=== PATIENT | male | born 1940 | race Caucasian/White ===

== ENCOUNTER 2020-12-24 10:42 | Outpatient (CLI) | payer MEDICARE | END 2020-12-24 10:43 | disposition home or self-care (01) | LOC: CSHWCC 10:42 | PROVIDERS: ATTEND Nurse Practitioner Family | DX: I87.332 Chronic venous hypertension (idiopathic) with ulcer and inflammation of left lower extremity (principal); I87.311 Chronic venous hypertension (idiopathic) with ulcer of right lower extremity; I87.2 Venous insufficiency (chronic) (peripheral); E11.622 Type 2 diabetes mellitus with other skin ulcer; L97.812 Non-pressure chronic ulcer of other part of right lower leg with fat layer exposed; L97.821 Non-pressure chronic ulcer of other part of left lower leg limited to breakdown of skin; R60.0 Localized edema; E11.59 Type 2 diabetes mellitus with other circulatory complications; M1A.9XX0 Chronic gout, unspecified, without tophus (tophi) | CPT/HCPCS: 97139; G0463; 99213 ==

== ENCOUNTER 2020-12-28 10:58 | Outpatient (CLI) | payer MEDICARE | END 2020-12-28 10:59 | disposition home or self-care (01) | LOC: CSHWCC 10:58 | PROVIDERS: ATTEND Nurse Practitioner Family | DX: I87.332 Chronic venous hypertension (idiopathic) with ulcer and inflammation of left lower extremity (principal); I87.311 Chronic venous hypertension (idiopathic) with ulcer of right lower extremity; L97.812 Non-pressure chronic ulcer of other part of right lower leg with fat layer exposed; L97.821 Non-pressure chronic ulcer of other part of left lower leg limited to breakdown of skin; R60.0 Localized edema; E11.59 Type 2 diabetes mellitus with other circulatory complications; I87.2 Venous insufficiency (chronic) (peripheral); M1A.9XX0 Chronic gout, unspecified, without tophus (tophi) | CPT/HCPCS: 97139; G0463; 99213 ==

== ENCOUNTER 2021-01-05 12:42 | Outpatient (CLI) | payer MEDICARE | END 2021-01-05 12:43 | disposition home or self-care (01) | LOC: CSHWCC 12:42 | PROVIDERS: ATTEND Nurse Practitioner Family | DX: I87.333 Chronic venous hypertension (idiopathic) with ulcer and inflammation of bilateral lower extremity (principal); L97.812 Non-pressure chronic ulcer of other part of right lower leg with fat layer exposed; L97.821 Non-pressure chronic ulcer of other part of left lower leg limited to breakdown of skin; R60.0 Localized edema; E11.59 Type 2 diabetes mellitus with other circulatory complications; I87.2 Venous insufficiency (chronic) (peripheral); M1A.9XX0 Chronic gout, unspecified, without tophus (tophi) | CPT/HCPCS: 99213; G0463 ==

== ENCOUNTER 2021-01-07 10:16 | Outpatient (CLI) | payer MEDICARE | END 2021-01-07 10:17 | disposition home or self-care (01) | LOC: CSHWCC 10:16 | PROVIDERS: ATTEND Nurse Practitioner Family | DX: I87.332 Chronic venous hypertension (idiopathic) with ulcer and inflammation of left lower extremity (principal); I87.311 Chronic venous hypertension (idiopathic) with ulcer of right lower extremity; L97.812 Non-pressure chronic ulcer of other part of right lower leg with fat layer exposed; L97.821 Non-pressure chronic ulcer of other part of left lower leg limited to breakdown of skin; R60.0 Localized edema; E11.59 Type 2 diabetes mellitus with other circulatory complications; I87.2 Venous insufficiency (chronic) (peripheral); M1A.9XX0 Chronic gout, unspecified, without tophus (tophi) | CPT/HCPCS: 99213; G0463 ==

== ENCOUNTER 2021-02-10 08:54 | Outpatient (CLI) | payer MEDICARE | END 2021-02-10 08:55 | disposition home or self-care (01) | LOC: CSHWCC 08:54 | PROVIDERS: ATTEND Nurse Practitioner Family | DX: I87.311 Chronic venous hypertension (idiopathic) with ulcer of right lower extremity (principal); L97.812 Non-pressure chronic ulcer of other part of right lower leg with fat layer exposed; I87.332 Chronic venous hypertension (idiopathic) with ulcer and inflammation of left lower extremity; L97.821 Non-pressure chronic ulcer of other part of left lower leg limited to breakdown of skin; R60.0 Localized edema; E11.59 Type 2 diabetes mellitus with other circulatory complications; I87.2 Venous insufficiency (chronic) (peripheral); E11.622 Type 2 diabetes mellitus with other skin ulcer | CPT/HCPCS: 87070; 87077; 87186; 87205; 97139; G0463; 99213 ==

== ENCOUNTER 2021-02-16 13:31 | Outpatient (CLI) | payer MEDICARE | END 2021-02-16 13:32 | disposition home or self-care (01) | LOC: CSHWCC 13:31 | PROVIDERS: ATTEND Nurse Practitioner Family | DX: I87.332 Chronic venous hypertension (idiopathic) with ulcer and inflammation of left lower extremity (principal); I87.311 Chronic venous hypertension (idiopathic) with ulcer of right lower extremity; I87.2 Venous insufficiency (chronic) (peripheral); E11.622 Type 2 diabetes mellitus with other skin ulcer; L97.812 Non-pressure chronic ulcer of other part of right lower leg with fat layer exposed; L97.821 Non-pressure chronic ulcer of other part of left lower leg limited to breakdown of skin; R60.0 Localized edema; E11.59 Type 2 diabetes mellitus with other circulatory complications; M1A.9XX0 Chronic gout, unspecified, without tophus (tophi) | CPT/HCPCS: 99213; G0463 ==

== ENCOUNTER 2021-04-28 08:46 | Outpatient (CLI) | payer MEDICARE | END 2021-04-28 08:47 | disposition home or self-care (01) | LOC: CSHWCC 08:46 | PROVIDERS: ATTEND Nurse Practitioner Family | DX: I87.332 Chronic venous hypertension (idiopathic) with ulcer and inflammation of left lower extremity (principal); I87.311 Chronic venous hypertension (idiopathic) with ulcer of right lower extremity; I87.2 Venous insufficiency (chronic) (peripheral); E11.622 Type 2 diabetes mellitus with other skin ulcer; L97.812 Non-pressure chronic ulcer of other part of right lower leg with fat layer exposed; L97.821 Non-pressure chronic ulcer of other part of left lower leg limited to breakdown of skin; E11.59 Type 2 diabetes mellitus with other circulatory complications; R60.0 Localized edema; M1A.9XX0 Chronic gout, unspecified, without tophus (tophi) | CPT/HCPCS: 97139; G0463; 99213 ==

== ENCOUNTER 2021-10-10 08:51 | Outpatient (CLI) | payer MEDICARE | END 2021-10-10 08:52 | disposition home or self-care (01) | LOC: CSHWCC 08:51 | PROVIDERS: ATTEND Nurse Practitioner Family | DX: I87.311 Chronic venous hypertension (idiopathic) with ulcer of right lower extremity (principal); E11.59 Type 2 diabetes mellitus with other circulatory complications; I87.2 Venous insufficiency (chronic) (peripheral); L97.811 Non-pressure chronic ulcer of other part of right lower leg limited to breakdown of skin; I87.332 Chronic venous hypertension (idiopathic) with ulcer and inflammation of left lower extremity; L97.821 Non-pressure chronic ulcer of other part of left lower leg limited to breakdown of skin; R60.0 Localized edema ==

== ENCOUNTER 2021-10-14 11:09 | Outpatient (CLI) | payer MEDICARE | END 2021-10-14 11:10 | disposition home or self-care (01) | LOC: CSHWCC 11:09 | PROVIDERS: ATTEND Nurse Practitioner Family | DX: I87.311 Chronic venous hypertension (idiopathic) with ulcer of right lower extremity (principal); E11.59 Type 2 diabetes mellitus with other circulatory complications; I87.2 Venous insufficiency (chronic) (peripheral); L97.811 Non-pressure chronic ulcer of other part of right lower leg limited to breakdown of skin; I87.332 Chronic venous hypertension (idiopathic) with ulcer and inflammation of left lower extremity; L97.821 Non-pressure chronic ulcer of other part of left lower leg limited to breakdown of skin; R60.0 Localized edema | CPT/HCPCS: 29581; 97139; G0463; 99213 ==

== ENCOUNTER 2022-05-30 11:25 | Inpatient (IN) | payer MEDICARE, OTHER ==
[2022-05-30 12:07] LABS: #Eosinphils 0.2 10x3/uL (0.0-0.5); #Monocytes 0.5 10x3/uL (0.0-1.1); #Neutrophils 4.1 10x3/uL (1.5-8.4); %Basophils 0.2 % (0.0-2.0); %Eosinophils 3.3 % (0.0-6.0); %Lymphocytes 11.6 % (18.0-47.0); %Monocytes 9.1 % (0.0-10.0); %Neutrophils 75.1 % (40.0-75.0); Hemoglobin 9.6 g/dL (13.5-17.5); Mean Corpuscular HGB CONC 32.4 g/dL (32.0-36.0); Mean Corpuscular Hemoglobin 27.5 pg (27.0-33.0); Mean Corpuscular Volume 84.8 fl (81.2-95.1); Mean Platelet Volume 10.3 fl (7.4-10.4); Platelet Count 166 10x3/uL (150-450); RBC Distribution Width 15.9 % (11.5-14.5); Red Blood Cell (RBC) Count 3.49 10x6/uL (4.32-5.72); White Blood Cell (WBC) Count 5.5 10x3/uL (3.5-10.5)
[2022-05-30 12:24] LABS: ALT (SGPT) 12 U/L (8-55); AST (SGOT) 11 U/L (5-34); Albumin 3.3 g/dL (3.4-4.8); Alkaline Phosphatase 114 U/L (40-110); Anion Gap 15 mmol/L (10-20); BUN (Urea Nitrogen) 120 mg/dL (8.4-25.7); Bilirubin, Total 0.8 mg/dL (0.2-1.2); Calc. Creatinine Clearance 0 mL/min (70-130); Calcium 8.5 mg/dL (7.8-10.44); Carbon Dioxide 19 mmol/L (23-31); Chloride 100 mmol/L (98-107); Estimated GFR 12; Globulin 3.5 g/dL (2.4-3.5); Glucose 106 mg/dL (83-110); Lipase 59 U/L (8-78); Magnesium 1.6 mg/dL (1.6-2.6); Potassium 4.9 mmol/L (3.5-5.1); Protein, Total 6.8 g/dL (5.8-8.1); Sodium 129 mmol/L (136-145)
[2022-05-30 12:44] LABS: CKMB 1.9 ng/mL (0-6.6)
[2022-05-30 15:39] LABS: Bilirubin Neg (Negative); Blood, Urine Negative (Negative); Clarity Clear (Clear); Glucose, Urine (Dipstick) Normal (Negative); Ketone, Urine Negative (Negative); Leukocyte Negative (Negative); Nitrite Negative (Negative); Protein, Urine (Dipstick) Negative (Neg-Trace); Urobilinogen Normal mg/dL (Less than 2)
[2022-05-30] MEDS ORDERED: HumaLOG 300 UNITS/3 ML VIAL SC PRN ×2 (16:27)
[2022-05-30] MEDS ORDERED: Dextrose 5% in Water 1,000 ML IV PRN (16:27)
[2022-05-30] MEDS ORDERED: Dextrose 50% Abboject 50 ML SYRINGE SLOW IVP PRN (16:27)
[2022-05-30 16:49] VITALS: BMI 27.3
[2022-05-30 18:30] LABS: Anion Gap 15 mmol/L (10-20); BUN (Urea Nitrogen) 113 mg/dL (8.4-25.7); Calc. Creatinine Clearance 18 mL/min (70-130); Calcium 8.7 mg/dL (7.8-10.44); Carbon Dioxide 19 mmol/L (23-31); Chloride 100 mmol/L (98-107); Estimated GFR 14; Glucose 100 mg/dL (83-110); Potassium 4.5 mmol/L (3.5-5.1); Sodium 129 mmol/L (136-145)
[2022-05-30 18:37] LABS: Troponin I 0.056 ng/mL (< 0.028)
[2022-05-30] MEDS: Albumin 25% 25 GM/100 ML BOT IVPB SCH (19:46)
[2022-05-30] MEDS: Sodium Chloride 0.9% 1,000 ML IV SCH (19:49)
[2022-05-30] MEDS: Heparin 5,000 UNITS/ML VIAL SC SCH (22:00)
[2022-05-31 01:57] LABS: Creatinine, Urine 45.11 mg/dL (63-166)
[2022-05-31] MEDS ORDERED: Albumin 25% 25 GM/100 ML BOT IVPB SCH (04:00)
[2022-05-31 04:27] LABS: #Eosinphils 0.2 10x3/uL (0.0-0.5); #Monocytes 0.5 10x3/uL (0.0-1.1); #Neutrophils 4.1 10x3/uL (1.5-8.4); %Basophils 0.4 % (0.0-2.0); %Eosinophils 4.3 % (0.0-6.0); %Lymphocytes 12.9 % (18.0-47.0); %Monocytes 8.9 % (0.0-10.0); %Neutrophils 72.6 % (40.0-75.0); Hemoglobin 10.5 g/dL (13.5-17.5); Mean Corpuscular HGB CONC 31.9 g/dL (32.0-36.0); Mean Corpuscular Hemoglobin 27.3 pg (27.0-33.0); Mean Corpuscular Volume 85.7 fl (81.2-95.1); Mean Platelet Volume 11.7 fl (7.4-10.4); Platelet Count 199 10x3/uL (150-450); RBC Distribution Width 16.1 % (11.5-14.5); Red Blood Cell (RBC) Count 3.84 10x6/uL (4.32-5.72); White Blood Cell (WBC) Count 5.6 10x3/uL (3.5-10.5)
[2022-05-31 04:44] LABS: Anion Gap 14 mmol/L (10-20); BUN (Urea Nitrogen) 105 mg/dL (8.4-25.7); Calc. Creatinine Clearance 22 mL/min (70-130); Calcium 9.1 mg/dL (7.8-10.44); Carbon Dioxide 21 mmol/L (23-31); Chloride 102 mmol/L (98-107); Estimated GFR 17; Glucose 86 mg/dL (83-110); Potassium 4.6 mmol/L (3.5-5.1); Sodium 132 mmol/L (136-145)
[2022-05-31] MEDS: Sodium Chloride 0.9% 1,000 ML IV SCH ×2 (06:57→17:54)
[2022-05-31] MEDS: Albumin 25% 25 GM/100 ML BOT IVPB SCH (07:57)
[2022-05-31] MEDS: Heparin 5,000 UNITS/ML VIAL SC SCH ×2 (10:05→23:12)
[2022-05-31] MEDS: Acetaminophen 325 MG TAB PO PRN (11:36)
[2022-05-31] MEDS: ALPRAZolam 0.25 MG TAB PO PRN (11:37)
[2022-05-31] MEDS: Aspirin 81 mg Enteric Coated Tablet PO SCH ×2 (11:37→23:12)
[2022-05-31] MEDS: Cyanocobalamin (Vitamin B-12) 1,000 MCG TAB PO SCH (11:37)
[2022-05-31] MEDS: Ferrous Sulfate 325 MG TAB PO SCH ×2 (11:38→23:12)
[2022-05-31] MEDS: Atorvastatin Calcium 40 MG TAB PO SCH (11:38)
[2022-05-31] MEDS: traZODone HCl 50 MG TAB PO SCH (23:12)
[2022-06-01 04:35] LABS: #Eosinphils 0.1 10x3/uL (0.0-0.5); #Monocytes 0.5 10x3/uL (0.0-1.1); #Neutrophils 4.9 10x3/uL (1.5-8.4); %Eosinophils 2.1 % (0.0-6.0); %Lymphocytes 10.5 % (18.0-47.0); %Monocytes 8.4 % (0.0-10.0); %Neutrophils 78.5 % (40.0-75.0); Hemoglobin 10.3 g/dL (13.5-17.5); Mean Corpuscular HGB CONC 32.5 g/dL (32.0-36.0); Mean Corpuscular Hemoglobin 27.1 pg (27.0-33.0); Mean Corpuscular Volume 83.4 fl (81.2-95.1); Mean Platelet Volume 11.4 fl (7.4-10.4); Platelet Count 196 10x3/uL (150-450); RBC Distribution Width 16.3 % (11.5-14.5); White Blood Cell (WBC) Count 6.2 10x3/uL (3.5-10.5)
[2022-06-01 04:39] LABS: Anion Gap 17 mmol/L (10-20); BUN (Urea Nitrogen) 93 mg/dL (8.4-25.7); Calc. Creatinine Clearance 29 mL/min (70-130); Calcium 9.1 mg/dL (7.8-10.44); Carbon Dioxide 16 mmol/L (23-31); Chloride 104 mmol/L (98-107); Estimated GFR 25; Glucose 118 mg/dL (83-110); Potassium 4.4 mmol/L (3.5-5.1); Sodium 133 mmol/L (136-145)
[2022-06-01] MEDS: Sodium Chloride 0.9% 1,000 ML IV SCH ×2 (07:05→13:30)
[2022-06-01 09:36] LABS: Urine Total Volume 850 mL (250-2400)
[2022-06-01 10:19] LABS: 24 Hr Creatinine 406.22 mg/24 hr (950-2490); Creatinine, Urine 47.79 mg/dL (63-166); Protein, Urine Less than 10 mg/dL (1-14)
[2022-06-01] MEDS: Cyanocobalamin (Vitamin B-12) 1,000 MCG TAB PO SCH (10:42)
[2022-06-01] MEDS: Ferrous Sulfate 325 MG TAB PO SCH ×2 (10:42→21:52)
[2022-06-01] MEDS: Spironolactone 25 MG TAB PO SCH (10:42)
[2022-06-01] MEDS: Aspirin 81 mg Enteric Coated Tablet PO SCH ×2 (10:42→21:53)
[2022-06-01] MEDS: Atorvastatin Calcium 40 MG TAB PO SCH (10:43)
[2022-06-01] MEDS: Heparin 5,000 UNITS/ML VIAL SC SCH ×2 (10:45→21:53)
[2022-06-01] MEDS: Acetaminophen 325 MG TAB PO PRN ×2 (10:49→21:57)
[2022-06-01] MEDS ORDERED: Tamsulosin HCl 0.4 MG CAP PO SCH (21:00)
[2022-06-01] MEDS: traZODone HCl 50 MG TAB PO SCH (21:52)
[2022-06-01] MEDS: ALPRAZolam 0.25 MG TAB PO PRN (21:57)
[2022-06-02 05:46] LABS: #Eosinphils 0.1 10x3/uL (0.0-0.5); #Monocytes 0.4 10x3/uL (0.0-1.1); #Neutrophils 3.2 10x3/uL (1.5-8.4); %Basophils 0.4 % (0.0-2.0); %Eosinophils 2.5 % (0.0-6.0); %Lymphocytes 14.4 % (18.0-47.0); %Monocytes 9.7 % (0.0-10.0); %Neutrophils 72.1 % (40.0-75.0); Hemoglobin 9.8 g/dL (13.5-17.5); Mean Corpuscular HGB CONC 33.4 g/dL (32.0-36.0); Mean Corpuscular Hemoglobin 27.6 pg (27.0-33.0); Mean Corpuscular Volume 82.5 fl (81.2-95.1); Mean Platelet Volume 12.2 fl (7.4-10.4); Platelet Count 187 10x3/uL (150-450); RBC Distribution Width 16.6 % (11.5-14.5); Red Blood Cell (RBC) Count 3.55 10x6/uL (4.32-5.72); White Blood Cell (WBC) Count 4.5 10x3/uL (3.5-10.5)
[2022-06-02 05:56] LABS: Anion Gap 14 mmol/L (10-20); BUN (Urea Nitrogen) 79 mg/dL (8.4-25.7); Calc. Creatinine Clearance 38 mL/min (70-130); Calcium 8.9 mg/dL (7.8-10.44); Carbon Dioxide 20 mmol/L (23-31); Chloride 104 mmol/L (98-107); Estimated GFR 34; Glucose 110 mg/dL (83-110); Potassium 4.2 mmol/L (3.5-5.1); Sodium 134 mmol/L (136-145)
[2022-06-02] MEDS: Aspirin 81 mg Enteric Coated Tablet PO SCH (09:46)
[2022-06-02] MEDS: Cyanocobalamin (Vitamin B-12) 1,000 MCG TAB PO SCH (09:46)
[2022-06-02] MEDS: Spironolactone 25 MG TAB PO SCH (09:46)
[2022-06-02] MEDS: Ferrous Sulfate 325 MG TAB PO SCH (09:46)
[2022-06-02] MEDS: Atorvastatin Calcium 40 MG TAB PO SCH (09:46)
[2022-06-02] MEDS: Heparin 5,000 UNITS/ML VIAL SC SCH (09:47)
[2022-06-02] MEDS: ALPRAZolam 0.25 MG TAB PO PRN (10:06)
[2022-06-02] MEDS: Sodium Chloride 0.9% 1,000 ML IV SCH (10:09)
[2022-06-02 11:47] VITALS: BP 126/67; TEMP 97.5
[2022-06-02 12:25] LABS: SARS-CoV-2 NAA Rapid Test Not Detected (NotDetected)
== END 2022-06-02 14:10 | disposition home or self-care (01) | DRG 683 ==
LOC: CSHERS 11:25 → CSHTELE 16:27 → OBSVTOIN 16:28
PROVIDERS: ADMIT Family Medicine; ATTEND Hospitalist
PROC: 30233J1 Transfusion of Nonautologous Serum Albumin into Peripheral Vein, Percutaneous Approach (ICD-10-PCS; principal; 2022-05-30)
DX: N17.9 Acute kidney failure, unspecified (principal); E87.1 Hypo-osmolality and hyponatremia; I50.42 Chronic combined systolic (congestive) and diastolic (congestive) heart failure; I13.0 Hypertensive heart and chronic kidney disease with heart failure and stage 1 through stage 4 chronic kidney disease, or unspecified chronic kidney disease; E87.2 Acidosis; I95.9 Hypotension, unspecified; I25.5 Ischemic cardiomyopathy; I25.10 Atherosclerotic heart disease of native coronary artery without angina pectoris; E11.22 Type 2 diabetes mellitus with diabetic chronic kidney disease; N18.30 Chronic kidney disease, stage 3 unspecified; E78.5 Hyperlipidemia, unspecified; M10.9 Gout, unspecified; I71.4 Abdominal aortic aneurysm, without rupture; F41.9 Anxiety disorder, unspecified; D63.1 Anemia in chronic kidney disease; E86.9 Volume depletion, unspecified; Z20.828 Contact with and (suspected) exposure to other viral communicable diseases; Z95.1 Presence of aortocoronary bypass graft; Z95.810 Presence of automatic (implantable) cardiac defibrillator; Z79.82 Long term (current) use of aspirin; Z79.899 Other long term (current) drug therapy; Z87.891 Personal history of nicotine dependence
CPT/HCPCS: 36415; 36416; 71045; 76770; 80048; 80053; 81003; 82274; 82553; 82570; 83605; 83690; 83735; 83880; 83930; 83935; 84156; 84443; 84484; 84540; 85025; 93005; 93306; 97139; J1644; J7050; P9047; U0002; U0003; U0005